=== PATIENT | male | born 1995 | race American Indian/Alaskan Native ===

== ENCOUNTER 2017-08-10 12:25 | Emergency (ER) | payer OTHER ==
[2017-08-10 12:33] VITALS: BP 144/83
--- NOTE | 2017-08-10 14:01 | Emergency Department Report ---
Chief Complaint: Headache Stated Complaint: ADHIKARI / EYE PAIN Time Seen by Provider: 08/10/17 13:49 - HPI History of Present Illness: Patient is a 21-year-old [place] male who is complaining of eye strain. Patient states that when he was in [place] he wore glasses which he does not have anymore he states that when looking at computer a television he is beginning to get some mild headache and feels some blurriness with his vision. Patient has no other complaints at this time. - Exam Vital Signs: Vital Signs 08/10/17 12:29 Temperature 98.3 F Pulse Rate 88 Respiratory 20 Rate Blood Pressure 144/83 O2 Sat by Pulse 100 Oximetry Physical Exam: Patient's general exam is alert and oriented 3 exam there is no purulent drainage is no scleral injection movements are intact Heart exam S1-S2 no murmurs gallops or rubs lungs clear to auscultation bilaterally MSE screening note: Focused history and physical exam performed. Due to findings the following was ordered: ED Medical Decision Making - Medical Decision Making Patient has a nonmedical emergency and actually needs to see an senior marketing associate at this time. Patient was given outpatient follow-up ED Disposition for MSE Clinical Impression: Eye strain Disposition: Z-07 MED SCREENING EXAM-LEFT Is pt being admited?: No Does the pt Need Aspirin: No Condition: Stable Additional Instructions: Welcome to [facility]. [facility]. Click on the map for directions. F [facility] [phone] Office Hours: Mon, , Mon, & Mon 10:00 am - 5:00 pm : CLOSED [facility] Sat 10:00 am - 2.00 pm (By Appointment ONLY)
[2017-08-10] MEDS ORDERED: PEPCID IV ONE (14:30)
[2017-08-10] MEDS ORDERED: BENADRYL ONE (14:31)
== END 2017-08-10 14:07 | disposition left against medical advice (07) ==
LOC: ED 12:25
DX: H53.10 Unspecified subjective visual disturbances (principal)
CPT/HCPCS: 99282; J2930; J1200